=== PATIENT | female | born 1965 | race American Indian/Alaskan Native ===

== ENCOUNTER 2017-01-13 18:33 | Emergency (ER) | payer OTHER ==
[2017-01-13 19:08] VITALS: BP 184/82
[2017-01-13 19:41] LABS: Basophils % (Auto) 0.7 % (0.0-1.8); Hemoglobin 10.8 gm/dl (10.1-14.3); Mean Corpuscular HGB Conc 33 % (30-34); Mean Corpuscular Hemoglobin 30 pg (28-32); Mean Corpuscular Volume 91 fl (79-97); Platelet Count 363 K/mm3 (140-440); Red Blood Count 3.63 M/mm3 (3.65-5.03); Red Cell Distribution Width 16.9 % (13.2-15.2); White Blood Count 6.6 K/mm3 (4.5-11.0)
[2017-01-13 19:43] LABS: INR 1.01 (0.87-1.13)
[2017-01-13 19:44] LABS: Partial Thromboplastin Time 25.9 Sec. (24.2-36.6)
[2017-01-13 19:55] LABS: Anion Gap 18 mmol/L; BUN/Creatinine Ratio 16; Blood Urea Nitrogen 11 mg/dL (7-17); Calcium 8.6 mg/dL (8.4-10.2); Carbon Dioxide 24 mmol/L (22-30); Chloride 94.5 mmol/L (98-107); Glucose 218 mg/dL (65-100); Potassium 3.9 mmol/L (3.6-5.0); Sodium 133 mmol/L (137-145)
--- NOTE | 2017-01-13 20:34 | Cat Scan Report ---
FINAL REPORT PROCEDURE: CT HEAD/BRAIN WO CON TECHNIQUE: Computerized tomography of the head was performed without contrast material. HISTORY: h/o Tia with rt arm pain and headache COMPARISON: No prior studies are available for comparison. FINDINGS: No CT evidence of intracranial mass, hemorrhage, acute territorial infarction, or hydrocephalus. Intracranial arteries are symmetric in density. Calvarium is intact. Visualized paranasal sinuses and mastoids are aerated. IMPRESSION: No CT evidence of acute intracranial abnormality
== END 2017-01-14 02:00 | disposition left against medical advice (07) ==
LOC: ED 18:33
DX: M79.601 Pain in right arm (principal); Z53.21 Procedure and treatment not carried out due to patient leaving prior to being seen by health care provider
CPT/HCPCS: 36415; 70450; 80048; 84484; 85025; 85610; 85670; 85730